=== PATIENT | female | born 1955 | race Caucasian/White ===

== ENCOUNTER 2016-12-09 10:28 | Emergency (ER) | payer BC, OTHER ==
[2016-12-09 10:42] VITALS: BP 119/68
[2016-12-09] MEDS ORDERED: DOXYcycline CAP(*) 100 MG PO ONE (11:47)
--- NOTE | 2016-12-09 11:56 | UC ---
Skin Complaint HPI - HPI Summary HPI Summary: Patient presents s/p tick bite on her left lower leg. She states it must have been on her from 9 p.m last night to 6 a.m. this morning. She removed it, and it was not engorged. She has it with her. She denies any rashes, joint pain, or fever. She notes a small red spot where the tick was. - History of Current Complaint Chief Complaint: UCSkin Time Seen by Provider: 12/09/16 11:43 Stated Complaint: TICK BITE Hx Obtained From: Patient ?: No Onset/Duration: Sudden Onset Skin Exposure Onset/Duration: Hours Ago Current Severity: None Alleviating Factor(s): Nothing Associated Signs & Symptoms: Positive: Negative - Allergy/Home Medications Allergies/Adverse Reactions: Allergies Allergy/AdvReac Type Severity Reaction Status Date / Time Sulfamethoxazole Allergy Mild Rash Verified 12/09/16 10:38 w/Trimethoprim [From Bactrim] Review of Systems Constitutional: Negative Skin: Other - small red augustine on left leg. Eyes: Negative ENT: Negative Respiratory: Negative Cardiovascular: Negative Gastrointestinal: Negative Genitourinary: Negative Motor: Negative Neurovascular: Negative Musculoskeletal: Negative Neurological: Negative Psychological: Negative All Other Systems Reviewed And Are Negative: Yes PMH/Surg Hx/FS Hx/Imm Hx Previously Healthy: Yes - Surgical History Surgical History: Yes Surgery Procedure, Year, and Place: [facility] 1996 - Family History Known Family History: Positive: Other - bone cancer - Social History Occupation: Employed Part-time Lives: With Family Alcohol Use: None Substance Use Type: None Smoking Status (MU): Never Smoked Tobacco Physical Exam Triage Information Reviewed: Yes Appearance: Well-Appearing Vital Signs: Initial Vital Signs Temp 98 F 12/09/16 10:39 Pulse 76 12/09/16 10:39 Resp 18 12/09/16 10:39 BP 119/68 12/09/16 10:39 Pulse Ox 99 12/09/16 10:39 Vital Signs Reviewed: Yes Eye Exam: Normal ENT Exam: Normal Neck exam: Normal Neck: Positive: 1 Respiratory Exam: Normal Cardiovascular Exam: Normal Abdominal Exam: Normal Musculoskeletal Exam: Normal Neurological Exam: Normal Psychological Exam: Normal Skin Exam: Normal Skin: Positive: Other - left medial proximal leg with 1.5 cm circular area, no erythm migrans noted, induration or flucuance. Course/Dx - Course Course Of Treatment: Patient presents s/p tick bite on less than 24 hours not engorged. Treated with doxycycline 200 mg once. Discharged home in stable condition. - Differential Diagnoses - Skin Complaint Differential Diagnoses: Other - tick bite - Diagnoses Provider Diagnoses: tick bite Discharge - Discharge Plan Condition: Stable Disposition: HOME Patient Education Materials: Tick Bite (ED) Referrals: Ilda Walton MD [Primary Care Provider] -
== END 2016-12-09 11:54 | disposition home or self-care (01) ==
LOC: UCEAST 10:28
DX: S80.862A Insect bite (nonvenomous), left lower leg, initial encounter (principal); Z88.2 Allergy status to sulfonamides; W57.XXXA Bitten or stung by nonvenomous insect and other nonvenomous arthropods, initial encounter; Y92.9 Unspecified place or not applicable
CPT/HCPCS: 99212; A9270-GY; G0463

== ENCOUNTER 2017-08-13 21:01 | Observation (INO) | payer BC ==
[2017-08-13 22:04] LABS: ABS Basophils 0 10^3/ul (0-0.2); ABS Eosinophils 0.4 10^3/ul (0-0.6); ABS Lymphocytes 0.5 10^3/ul (1.0-4.8); ABS Monocytes 0.4 10^3/ul (0-0.8); ABS Neutrophils 7.9 10^3/ul (1.5-7.7); ABS Nucleated RBC 0 10^3/ul; Hematocrit 42 % (35-47); Hemoglobin 14.3 g/dl (12.0-16.0); Lymphocyte % 5.3 % (25-47); Mean Corpuscular HGB Conc 34 g/dl (31-36); Mean Corpuscular Hemoglobin 29 pg (27-31); Mean Corpuscular Volume 85 fL (80-97); Mean Platelet Volume 7.2 um3 (7.4-10.4); Nucleated Red Blood Cells % 0.1; Platelet Count 203 10^3/ul (150-450); Red Blood Count 4.96 10^6/ul (4.00-5.40); Red Cell Distribution Width 14 % (10.5-15); White Blood Count 9.2 10^3/ul (3.5-10.8)
[2017-08-13 22:10] LABS: INR 0.99 (0.77-1.02)
[2017-08-13 22:23] LABS: EGFR Non-African American 60.3 (>60)
[2017-08-13] MEDS ORDERED: diPHENhydraMINE IV* 50 MG/ML 1 ml VIAL (BENADRYL) IV ONE (23:25)
[2017-08-13] MEDS ORDERED: NS 0.9% 1000 ML* 1,000 ML IV ONE (23:25)
[2017-08-13] MEDS ORDERED: Metoprolol Tartrate IV* 1 MG/ML 5 ML VIAL IV ONE (23:25)
[2017-08-14] LABS: Urine Appearance Cloudy; Urine Blood 3+ (Negative); Urine Color Yellow; Urine Ketones Negative (Negative); Urine Protein 2+(100 mg/dL) (Negative); Urine Red Blood Cell 2+(6-10/hpf) (Absent); Urine Specific Gravity 1.025 (1.010-1.030); Urine Urobilinogen Negative (Negative); Urine White Blood Cell 2+(11-20/hpf) (Absent)
[2017-08-14] MEDS ORDERED: Levofloxacin 750 MG IVPREMIX(* 750 MG/150 ML BAG IVPB ONE (00:14)
--- NOTE | 2017-08-14 03:04 | HP ---
H&P (Free Text) History and Physical: PCP: Roxanne Walton MD Date/Time: 08/14/2017 0250 CC: generalized weakness, syncope x2 HPI: Mrs Chao is a 62YO female HX hypothyroidism & HLD presenting with onset Friday AM ~0600 upon being awakened by her dog & cat of an "awareness of her breathing and heartbeat" which she could not further characterize. She does not consider it chest pain or SOB. She then got up to let her animals out and awoke on the floor which happened again a few minutes she got up and again awoke on the floor. She does feel like she was out long either time and does not believe she struck her head. She denies any other pre- or post-dromal symptoms. Later in the day she felt tremulous with generalized weakness, subjective F/C, rigors , & "teeth chattering", but no sweats, abdominal pain, headache, change in bowel /bladder, or other issues. Her appetite was poor the remainder of the day. She admits to a non-productive cough and notes that her lower chest/epigastrum feels strange with inspiration, again does not call this pain or SOB. There has been some light nausea, but no emesis or diarrhea. She expressed concern over the fact that her systolic BP on Friday was 160 and in the 90s when she checked it Friday. 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; full code status FamHx: Mother: passed at 46 2nd cancer; Father: passed at 53 of CAD; Sister 1: survived Hodgkin's lymphoma; Sister 2: HX hepatitis A ROS: as above, otherwise reviewed and all were negative vitals: Vital Signs Temp 37.4 C 06/27/18 21:08 Pulse 95 08/14/17 01:00 Resp 25 08/14/17 01:00 BP 117/76 08/14/17 00:45 Pulse Ox 96 08/14/17 01:00 Constitutional: NAD, normally developed, overweight white female HEENM: atraumatic; sclera/conjunctiva: anicteric/clear; hearing: clinically intact; oropharynx: clear, mucosa moist Neck: soft tissue: no nuchal rigidity; thyroid: normal Pulmonary: clear to auscultation bilaterally, good aeration, no accessory muscle use CV: RR/RR, normal S1S2, no carotid bruit, no jugular venous distention, 2+ B DP/ PT, no edema Abdominal: soft, non-distended, non-tender, no rebound/guarding/rigidity, normoactive bowel sounds, no hepatosplenomegaly or masses, no costovertebral angle tenderness Musculoskeletal: general: grossly intact, non-tender Integumental: normal appearance and texture of exposed skin Psychiatric orientation: AA&O to PPS affect: calm mood: cooperative eye contact: good content: reliable responses: timely insight: fair to poor Testing: Lab Results 08/13/17 08/13/17 08/13/17 Range/Units 21:56 21:56 21:56 WBC 9.2 (3.5-10.8) 10^3/ul RBC 4.96 (4.00-5.40) 10^6/ul Hgb 14.3 (12.0-16.0) g/dl Hct 42 (35-47) % MCV 85 (80-97) fL MCH 29 (27-31) pg MCHC 34 (31-36) g/dl RDW 14 (10.5-15) % Plt Count 203 (150-450) 10^3/ul MPV 7.2 L (7.4-10.4) um3 Neut % (Auto) 86.1 H (38-83) % Lymph % (Auto) 5.3 L (25-47) % [place] % (Auto) 4.4 (0-7) % Eos % (Auto) 4.0 (0-6) % Baso % (Auto) 0.2 (0-2) % Absolute Neuts (auto) 7.9 H (1.5-7.7) 10^3/ul Absolute Lymphs (auto) 0.5 L (1.0-4.8) 10^3/ul Absolute Monos (auto) 0.4 (0-0.8) 10^3/ul Absolute Eos (auto) 0.4 (0-0.6) 10^3/ul Absolute Basos (auto) 0 (0-0.2) 10^3/ul Absolute Nucleated RBC 0 10^3/ul Nucleated RBC % 0.1 INR (Anticoag Therapy) 0.99 (0.77-1.02) Sodium 139 (135-145) mmol/L Potassium 3.5 (3.5-5.0) mmol/L Chloride 105 (101-111) mmol/L Carbon Dioxide 23 (22-32) mmol/L Anion Gap 11 (2-11) mmol/L BUN 29 H (6-24) mg/dL Creatinine 0.94 (0.51-0.95) mg/dL Est GFR ( Amer) 73.0 (>60) Est GFR (Non-Af Amer) 60.3 (>60) BUN/Creatinine Ratio 30.9 H (8-20) Glucose 106 H (70-100) mg/dL Lactic Acid (0.5-2.0) mmol/L Calcium 9.5 (8.6-10.3) mg/dL Magnesium (1.9-2.7) mg/dL Total Bilirubin 0.40 (0.2-1.0) mg/dL AST 19 (13-39) U/L ALT 18 (7-52) U/L Alkaline Phosphatase 60 (34-104) U/L Troponin I 0.01 (<0.04) ng/mL B-Natriuretic Peptide ( - 100) pg/mL Total Protein 7.0 (6.4-8.9) g/dL Albumin 4.1 (3.2-5.2) g/dL Globulin 2.9 (2-4) g/dL Albumin/Globulin Ratio 1.4 (1-3) TSH 0.80 (0.34-5.60) mcIU/mL Urine Color Urine Appearance Urine pH (5-9) Ur Specific [place] (1.010-1.030) Urine Protein (Negative) Urine Ketones (Negative) Urine Blood (Negative) Urine Nitrate (Negative) Urine Bilirubin (Negative) Urine Urobilinogen (Negative) Ur Leukocyte Esterase (Negative) Urine WBC (Auto) (Absent) Urine RBC (Auto) (Absent) Ur Squamous Epith Cells (Absent) Urine Bacteria (Absent) Urine Glucose (Negative) 08/13/17 08/13/17 08/13/17 Range/Units 21:56 21:56 23:43 WBC (3.5-10.8) 10^3/ul RBC (4.00-5.40) 10^6/ul Hgb (12.0-16.0) g/dl Hct (35-47) % MCV (80-97) fL MCH (27-31) pg MCHC (31-36) g/dl RDW (10.5-15) % Plt Count (150-450) 10^3/ul MPV (7.4-10.4) um3 Neut % (Auto) (38-83) % Lymph % (Auto) (25-47) % [place] % (Auto) (0-7) % Eos % (Auto) (0-6) % Baso % (Auto) (0-2) % Absolute Neuts (auto) (1.5-7.7) 10^3/ul Absolute Lymphs (auto) (1.0-4.8) 10^3/ul Absolute Monos (auto) (0-0.8) 10^3/ul Absolute Eos (auto) (0-0.6) 10^3/ul Absolute Basos (auto) (0-0.2) 10^3/ul Absolute Nucleated RBC 10^3/ul Nucleated RBC % INR (Anticoag Therapy) (0.77-1.02) Sodium (135-145) mmol/L Potassium (3.5-5.0) mmol/L Chloride (101-111) mmol/L Carbon Dioxide (22-32) mmol/L Anion Gap (2-11) mmol/L BUN (6-24) mg/dL Creatinine (0.51-0.95) mg/dL Est GFR ( Amer) (>60) Est GFR (Non-Af Amer) (>60) BUN/Creatinine Ratio (8-20) Glucose (70-100) mg/dL Lactic Acid 1.2 (0.5-2.0) mmol/L Calcium (8.6-10.3) mg/dL Magnesium (1.9-2.7) mg/dL Total Bilirubin (0.2-1.0) mg/dL AST (13-39) U/L ALT (7-52) U/L Alkaline Phosphatase (34-104) U/L Troponin I (<0.04) ng/mL B-Natriuretic Peptide 26 ( - 100) pg/mL Total Protein (6.4-8.9) g/dL Albumin (3.2-5.2) g/dL Globulin (2-4) g/dL Albumin/Globulin Ratio (1-3) TSH (0.34-5.60) mcIU/mL Urine Color Yellow Urine Appearance Cloudy Urine pH 5.0 (5-9) Ur Specific [place] 1.025 (1.010-1.030) Urine Protein 2+(100 mg/dl) A (Negative) Urine Ketones Negative (Negative) Urine Blood 3+ A (Negative) Urine Nitrate Negative (Negative) Urine Bilirubin Negative (Negative) Urine Urobilinogen Negative (Negative) Ur Leukocyte Esterase 2+ A (Negative) Urine WBC (Auto) 2+(11-20/hpf) A (Absent) Urine RBC (Auto) 2+(6-10/hpf) A (Absent) Ur Squamous Epith Cells Present A (Absent) Urine Bacteria Absent (Absent) Urine Glucose Negative (Negative) 08/14/17 Range/Units 00:31 WBC (3.5-10.8) 10^3/ul RBC (4.00-5.40) 10^6/ul Hgb (12.0-16.0) g/dl Hct (35-47) % MCV (80-97) fL MCH (27-31) pg MCHC (31-36) g/dl RDW (10.5-15) % Plt Count (150-450) 10^3/ul MPV (7.4-10.4) um3 Neut % (Auto) (38-83) % Lymph % (Auto) (25-47) % [place] % (Auto) (0-7) % Eos % (Auto) (0-6) % Baso % (Auto) (0-2) % Absolute Neuts (auto) (1.5-7.7) 10^3/ul Absolute Lymphs (auto) (1.0-4.8) 10^3/ul Absolute Monos (auto) (0-0.8) 10^3/ul Absolute Eos (auto) (0-0.6) 10^3/ul Absolute Basos (auto) (0-0.2) 10^3/ul Absolute Nucleated RBC 10^3/ul Nucleated RBC % INR (Anticoag Therapy) (0.77-1.02) Sodium (135-145) mmol/L Potassium (3.5-5.0) mmol/L Chloride (101-111) mmol/L Carbon Dioxide (22-32) mmol/L Anion Gap (2-11) mmol/L BUN (6-24) mg/dL Creatinine (0.51-0.95) mg/dL Est GFR ( Amer) (>60) Est GFR (Non-Af Amer) (>60) BUN/Creatinine Ratio (8-20) Glucose (70-100) mg/dL Lactic Acid (0.5-2.0) mmol/L Calcium (8.6-10.3) mg/dL Magnesium 2.1 (1.9-2.7) mg/dL Total Bilirubin (0.2-1.0) mg/dL AST (13-39) U/L ALT (7-52) U/L Alkaline Phosphatase (34-104) U/L Troponin I 0.00 (<0.04) ng/mL B-Natriuretic Peptide ( - 100) pg/mL Total Protein (6.4-8.9) g/dL Albumin (3.2-5.2) g/dL Globulin (2-4) g/dL Albumin/Globulin Ratio (1-3) TSH (0.34-5.60) mcIU/mL Urine Color Urine Appearance Urine pH (5-9) Ur Specific [place] (1.010-1.030) Urine Protein (Negative) Urine Ketones (Negative) Urine Blood (Negative) Urine Nitrate (Negative) Urine Bilirubin (Negative) Urine Urobilinogen (Negative) Ur Leukocyte Esterase (Negative) Urine WBC (Auto) (Absent) Urine RBC (Auto) (Absent) Ur Squamous Epith Cells (Absent) Urine Bacteria (Absent) Urine Glucose (Negative) ECG, personally reviewed: tachycardic ventricular quad-geminal RBBB rate 106, inverted T-waves III/AVF; Q-waves II/III/AVF; no prior comparison x/ ECG done earlier same day @ urgent care which is unchanged CXR, personally reviewed: no acute process Impression: 62F HX hypothyroidism & HLD presents with generalized subjective fevers/rigors & syncope DIAGNOSIS & PLAN Primary syncope : telemetry : check ECHO in AM to evaluate for valvular disorders : check d-dimer : supportive care subjective fevers : no source : check blood & urine CXs : given levofloxacin in ED, will hold further ABX at this time : trend WBCs & temp curves Secondary hypothyroidism : continue levothyroxine HLD : continue lovastatin Admission Rational: observation for syncope DVTp: heparin SQ Code Status: full HCP:
--- NOTE | 2017-08-14 04:00 | ED ---
Destini Carreon Jade, scribed for Sanju Koehler MD on 08/13/17 at 2329 . HPI Cardiac - HPI Summary HPI Summary: Pt is a 62 y/o female who presents to the ED c/o palpitations. She states a few days ago she felt like she was hyperventilating and could feel a pulse in her left ear. Yesterday, she had 2 syncopal episodes, and doesnt remember passing out. Pt denies any injuries during her fall. She thought the passing out was due to dehydration. Pt states she has been under lots of stress lately and has not been taking care of herself properly. Pt states she feels tired, has an intermittent cough with deep breaths, has a hive-like rash on her legs, and had a temperature of 101.6 degrees F. She denies any sore throat, runny nose, SOB, dysuria, urinary frequency, or abdominal pain. She just finished antibiotic treatment for a UTI today. Pt states her flushed cheeks are normal due to Rosacea. - History of Current Complaint Chief Complaint: EDDysrhythmPalp Stated Complaint: FEVER/ABNORMAL EKG SENT FROM CC Time Seen by Provider: 08/13/17 22:47 Hx Obtained From: Patient Hx Last Menstrual Period: post Onset/Duration: Started Days Ago - 2-3, Still Present Timing: Constant Current Severity: Mild Pain Intensity: 2 Pain Scale Used: 0-10 Numeric Character: Irregular Aggravating Factor(s): Nothing Alleviating Factor(s): Nothing Associated Signs and Symptoms: Positive: Recent Stress, Syncope, Cough - With deep breaths. Negative: Abdominal Pain, Sinus Discomfrot - Allergy/Home Medications Allergies/Adverse Reactions: Allergies Allergy/AdvReac Type Severity Reaction Status Date / Time sulfamethoxazole Allergy Intermediate lip rash Verified 08/13/17 21:12 [From Bactrim] trimethoprim [From Bactrim] Allergy Intermediate lip rash Verified 08/13/17 21: 12 Home Medications: Home Medications Aspirin 81 mg CHEW TAB* [Aspirin Low Dose TAB*] 81 mg PO DAILY 08/13/17 [ History Confirmed 08/13/17] Levothyroxine TAB* [Synthroid TAB*] 100 mcg PO DAILY 08/13/17 [History Confirmed 08/13/17] Lovastatin [Altoprev] 20 mg PO DAILY 08/13/17 [History Confirmed 08/13/17] PMH/Surg Hx/FS Hx/Imm Hx Endocrine/Hematology History: Reports: Hx Thyroid Disease Cardiovascular History: Reports: Hx Hypertension - no meds History: Reports: Other Problems/Disorders - UTI Musculoskeletal History: Reports: Other Musculoskeletal History - osteopenia Denies: Hx Osteoporosis - Cancer History Hx Chemotherapy: No Hx Radiation Therapy: No - Surgical History Surgery Procedure, Year, and Place: 1996 Infectious Disease History: No Infectious Disease History: Denies: Hx Clostridium Difficile, Hx Hepatitis, Hx Human Immunodeficiency Virus (HIV), Hx of Known/Suspected MRSA, Hx Shingles, Hx Tuberculosis, Hx Known/ Suspected VRE, Hx Known/Suspected VRSA, History Other Infectious Disease, Traveled Outside the [place] in Last 30 Days - Family History Known Family History: Positive: Other - bone cancer - Social History Alcohol Use: None Substance Use Type: Reports: None Smoking Status (MU): Never Smoked Tobacco Review of Systems Positive: Fever, Fatigue Negative: Sore Throat, Nasal Discharge Positive: Other - Hyperventilation Positive: Cough - With deep breaths. Negative: Shortness Of Breath Negative: Abdominal Pain Negative: dysuria, frequency Positive: Rash Positive: Syncope Positive: Other - Stressed All Other Systems Reviewed And Are Negative: Yes Physical Exam - Summary Physical Exam Summary: Appearance: Well appearing, no pain distress Skin: warm, dry, reflects adequate perfusion. Erythematous splotches on both thighs and back. Head/face: normal Eyes: EOMI, BLAIR ENT: normal Neck: supple, non-tender Respiratory: CTA, breath sounds present Cardiovascular: pulses symmetrical, irregularly irregular rhythm. Tachycardic. Abdomen: non-tender, soft Bowel Sounds: present Musculoskeletal: normal, strength/ROM intact Neuro: normal, sensory motor intact, A&Ox3 Triage Information Reviewed: Yes Vital Signs On Initial Exam: Initial Vitals Temp Pulse Resp BP Pulse Ox 99.3 F 106 16 131/64 94 08/13/17 21:08 08/13/17 21:08 08/13/17 21:08 08/13/17 21:08 08/13/17 21:08 Vital Signs Reviewed: Yes Diagnostics - Vital Signs Vital Signs Temp Pulse Resp BP Pulse Ox 08/13/17 23:16 105 16 133/64 94 08/13/17 23:00 82 27 94 08/13/17 22:47 67 16 96 08/13/17 22:46 105 135/89 97 08/13/17 21:08 99.3 F 106 16 131/64 94 - Laboratory Lab Results: Lab Results 08/13/17 08/13/17 08/13/17 Range/Units 21:56 21:56 21:56 WBC 9.2 (3.5-10.8) 10^3/ul RBC 4.96 (4.00-5.40) 10^6/ul Hgb 14.3 (12.0-16.0) g/dl Hct 42 (35-47) % MCV 85 (80-97) fL MCH 29 (27-31) pg MCHC 34 (31-36) g/dl RDW 14 (10.5-15) % Plt Count 203 (150-450) 10^3/ul MPV 7.2 L (7.4-10.4) um3 Neut % (Auto) 86.1 H (38-83) % Lymph % (Auto) 5.3 L (25-47) % [place] % (Auto) 4.4 (0-7) % Eos % (Auto) 4.0 (0-6) % Baso % (Auto) 0.2 (0-2) % Absolute Neuts (auto) 7.9 H (1.5-7.7) 10^3/ul Absolute Lymphs (auto) 0.5 L (1.0-4.8) 10^3/ul Absolute Monos (auto) 0.4 (0-0.8) 10^3/ul Absolute Eos (auto) 0.4 (0-0.6) 10^3/ul Absolute Basos (auto) 0 (0-0.2) 10^3/ul Absolute Nucleated RBC 0 10^3/ul Nucleated RBC % 0.1 INR (Anticoag Therapy) 0.99 (0.77-1.02) Sodium 139 (135-145) mmol/L Potassium 3.5 (3.5-5.0) mmol/L Chloride 105 (101-111) mmol/L Carbon Dioxide 23 (22-32) mmol/L Anion Gap 11 (2-11) mmol/L BUN 29 H (6-24) mg/dL Creatinine 0.94 (0.51-0.95) mg/dL Est GFR ( Amer) 73.0 (>60) Est GFR (Non-Af Amer) 60.3 (>60) BUN/Creatinine Ratio 30.9 H (8-20) Glucose 106 H (70-100) mg/dL Lactic Acid (0.5-2.0) mmol/L Calcium 9.5 (8.6-10.3) mg/dL Total Bilirubin 0.40 (0.2-1.0) mg/dL AST 19 (13-39) U/L ALT 18 (7-52) U/L Alkaline Phosphatase 60 (34-104) U/L Troponin I 0.01 (<0.04) ng/mL Total Protein 7.0 (6.4-8.9) g/dL Albumin 4.1 (3.2-5.2) g/dL Globulin 2.9 (2-4) g/dL Albumin/Globulin Ratio 1.4 (1-3) TSH 0.80 (0.34-5.60) mcIU/mL 08/13/17 Range/Units 21:56 WBC (3.5-10.8) 10^3/ul RBC (4.00-5.40) 10^6/ul Hgb (12.0-16.0) g/dl Hct (35-47) % MCV (80-97) fL MCH (27-31) pg MCHC (31-36) g/dl RDW (10.5-15) % Plt Count (150-450) 10^3/ul MPV (7.4-10.4) um3 Neut % (Auto) (38-83) % Lymph % (Auto) (25-47) % [place] % (Auto) (0-7) % Eos % (Auto) (0-6) % Baso % (Auto) (0-2) % Absolute Neuts (auto) (1.5-7.7) 10^3/ul Absolute Lymphs (auto) (1.0-4.8) 10^3/ul Absolute Monos (auto) (0-0.8) 10^3/ul Absolute Eos (auto) (0-0.6) 10^3/ul Absolute Basos (auto) (0-0.2) 10^3/ul Absolute Nucleated RBC 10^3/ul Nucleated RBC % INR (Anticoag Therapy) (0.77-1.02) Sodium (135-145) mmol/L Potassium (3.5-5.0) mmol/L Chloride (101-111) mmol/L Carbon Dioxide (22-32) mmol/L Anion Gap (2-11) mmol/L BUN (6-24) mg/dL Creatinine (0.51-0.95) mg/dL Est GFR ( Amer) (>60) Est GFR (Non-Af Amer) (>60) BUN/Creatinine Ratio (8-20) Glucose (70-100) mg/dL Lactic Acid 1.2 (0.5-2.0) mmol/L Calcium (8.6-10.3) mg/dL Total Bilirubin (0.2-1.0) mg/dL AST (13-39) U/L ALT (7-52) U/L Alkaline Phosphatase (34-104) U/L Troponin I (<0.04) ng/mL Total Protein (6.4-8.9) g/dL Albumin (3.2-5.2) g/dL Globulin (2-4) g/dL Albumin/Globulin Ratio (1-3) TSH (0.34-5.60) mcIU/mL Result Diagrams: 08/13/17 21:56 08/13/17 21:56 Lab Statement: Any lab studies that have been ordered have been reviewed, and results considered in the medical decision making process. - Radiology CXR Xray Interpretation: Positive (See Comments) - Increased interstitial markings and possible right middle lobe infiltrate. Pending official radiology report. Radiology Interpretation Completed By: ED Physician - EKG 21:40 Cardiac Rate: Tachycardia - [address] Segment: Non-Specific Ectopy: PVCs - Multiple EKG Interpretation: RBBB, LAD Disposition - Course Course Of Treatment: Patient with weakness, syncope 2 yesterday and malaise. X -ray shows right basilar infiltrate. WBC slightly elevated. Recently off antibiotic for UTI. Patient is unsure which one. IV fluids, antibiotics started here. Hospitalist contacted and evaluated the patient at bedside and will admit. - Differential Dx - Cardiopulmonary Differential Diagnoses - Cardiopulmonary: Acute Coronary, Bronchitis, CAD, Cardiomyopathy, CHF, Lower Resp Infection, Pulmonary Edema - Diagnoses Provider Diagnoses: Syncope, PVCs (premature ventricular contractions), Right lower lobe pneumonia - Physician Notifications Discussed Care Of Patient With: Cm Arriaza Time Discussed With Above Provider: 12:49 Instructed by Provider To: Other - Dr. Arriaza accepts pt for admission. Discharge - Sign-Out/Discharge Documenting (check all that apply): Discharge/Admit/Transfer - Admit - Discharge Plan Condition: Fair Disposition: ADMITTED TO [facility] - Billing Disposition and Condition Condition: FAIR Disposition: Admitted to [facility] The documentation as recorded by the Destini canela Jade accurately reflects the service I personally performed and the decisions made by , Sanju Koehler MD.
--- NOTE | 2017-08-14 07:52 | RAD ---
INDICATION: Palpitations COMPARISON: None TECHNIQUE: An AP portable view obtained at 2209 hours is submitted. FINDINGS: Bones/Soft Tissues: There are no acute bony findings. Cardiomediastinal: The cardiomediastinal silhouette is normal. Lungs: There is mild linear change left lung base most consistent with minimal atelectasis or scarring. There is mild diffuse interstitial change with may be chronic. There is no focal consolidation. Pleura: There are no pleural effusions. Other: None IMPRESSION: SUSPECTED MILD CHRONIC INTERSTITIAL CHANGES MINIMAL LEFT BASILAR ATELECTASIS OR SCARRING.
[2017-08-14] MEDS ORDERED: Acetaminophen TAB* 325 MG PO PRN (07:55)
[2017-08-14] MEDS ORDERED: Melatonin 3 MG TAB PO PRN (07:55)
[2017-08-14] MEDS: Levothyroxine TAB* 100 MCG TAB PO SCH (08:36)
[2017-08-14] MEDS: Aspirin 81 mg CHEW TAB* 81 MG TAB.CHEW PO SCH (08:36)
[2017-08-14] MEDS: Docusate CAP* 100 MG PO SCH ×2 (08:36→21:31)
[2017-08-14] MEDS ORDERED: CMC:Lovastatin (NF) 10 MG TAB PO SCH ×2 (09:00→17:00)
[2017-08-14 09:26] LABS: ABS Basophils 0.2 10^3/ul (0-0.2); ABS Eosinophils 0.3 10^3/ul (0-0.6); ABS Lymphocytes 0.6 10^3/ul (1.0-4.8); ABS Monocytes 0.3 10^3/ul (0-0.8); ABS Neutrophils 5.4 10^3/ul (1.5-7.7); ABS Nucleated RBC 0 10^3/ul; Hematocrit 39 % (35-47); Hemoglobin 13.5 g/dl (12.0-16.0); Lymphocyte % 8.3 % (25-47); Mean Corpuscular HGB Conc 35 g/dl (31-36); Mean Corpuscular Hemoglobin 29 pg (27-31); Mean Corpuscular Volume 84 fL (80-97); Mean Platelet Volume 6.9 um3 (7.4-10.4); Nucleated Red Blood Cells % 0; Platelet Count 198 10^3/ul (150-450); Red Blood Count 4.61 10^6/ul (4.00-5.40); Red Cell Distribution Width 14 % (10.5-15); White Blood Count 6.8 10^3/ul (3.5-10.8)
[2017-08-14 09:43] LABS: EGFR Non-African American 67.8 (>60)
[2017-08-14 09:51] LABS: INR 1.12 (0.77-1.02)
--- NOTE | 2017-08-14 11:25 | PN ---
Subjective Date of Service: 08/14/17 Interval History: No complaints. Denies CP, SOB, pleuritis, N/V, LH, vision changes, paresthesias Additional history: Friday felt fatigued and a sensation like shortness of breath. Friday had brief (seconds to minutes) numbness in entire right leg. 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 Friday completed 7 abx for UTI. Symptoms have now resolved. Diagnosed with urinary urgency. Friday presented to ED because she still felt unwell. Reports episode of teeth chattering and shaking which also occurred Friday In ED noted new rash on left leg and also identified on back. She has had right upper dental pain since March which has not been evaluated. Objective Active Medications: Acetaminophen (Tylenol Tab*) 650 mg PO Q6H PRN PRN Reason: FEVER/PAIN Aspirin (Aspirin 81 Mg Chew Tab*) 81 mg PO DAILY [facility] Last Admin: 08/14/17 08:36 Dose: 81 mg Docusate Sodium (Colace Cap*) 200 mg PO BID [facility] Last Admin: 08/14/17 08:36 Dose: 200 mg Heparin Sodium (Porcine) (Heparin Vial(*)) 5,000 units SUBCUT Q8HR [facility] Sodium Chloride (Ns 0.9% 1000 Ml*) 1,000 mls @ 100 mls/hr IV PER RATE [facility] Levothyroxine Sodium (Synthroid Tab*) 100 mcg PO DAILY [facility] Last Admin: 08/14/17 08:36 Dose: 100 mcg Lovastatin (Mevacor (Nf)) 20 mg PO DAILY@1700 [facility] Melatonin (Melatonin) 3 mg PO BEDTIME PRN; Protocol PRN Reason: Sleep Omeprazole (Prilosec Cap*) 20 mg PO DAILY@0600 [facility] Vital Signs - 8 hr 08/14/17 08/14/17 08/14/17 03:54 03:55 04:33 Temperature 98.1 F 98.5 F Pulse Rate 96 81 Respiratory 20 16 16 Rate Blood Pressure 117/76 128/68 (mmHg) O2 Sat by Pulse 97 98 Oximetry 08/14/17 08/14/17 07:39 08:00 Temperature 98.7 F Pulse Rate 89 Respiratory 16 16 Rate Blood Pressure 133/65 (mmHg) O2 Sat by Pulse 97 Oximetry Oxygen Devices in Use Now: None Appearance: NAD Eyes: No Scleral Icterus, PERRLA Ears/Nose/Mouth/Throat: NL Teeth, Lips, Gums, Mucous Membranes Moist, - - no obvious dental deformities or infection Neck: NL Appearance and Movements; NL JVP, Trachea Midline Respiratory: Symmetrical Chest Expansion and Respiratory Effort, Clear to Auscultation Cardiovascular: NL Sounds; No Murmurs; No JVD, RRR, No Edema Abdominal: NL Sounds; No Tenderness; No Distention, No Hepatosplenomegaly Lymphatic: No Cervical Adenopathy, No Axillary Adenopathy Extremities: No Edema Skin: - - left leg and upper back with scattered macular/papular ovoid lesions Neurological: Alert and Oriented x 3, NL Muscle Strength and Tone Result Diagrams: 08/14/17 09:15 08/14/17 09:15 Additional Lab and Data: Lab Results 08/13/17 08/13/17 08/13/17 Range/Units 21:56 21:56 21:56 WBC 9.2 (3.5-10.8) 10^3/ul RBC 4.96 (4.00-5.40) 10^6/ul Hgb 14.3 (12.0-16.0) g/dl Hct 42 (35-47) % MCV 85 (80-97) fL MCH 29 (27-31) pg MCHC 34 (31-36) g/dl RDW 14 (10.5-15) % Plt Count 203 (150-450) 10^3/ul MPV 7.2 L (7.4-10.4) um3 Neut % (Auto) 86.1 H (38-83) % Lymph % (Auto) 5.3 L (25-47) % [place] % (Auto) 4.4 (0-7) % Eos % (Auto) 4.0 (0-6) % Baso % (Auto) 0.2 (0-2) % Absolute Neuts (auto) 7.9 H (1.5-7.7) 10^3/ul Absolute Lymphs (auto) 0.5 L (1.0-4.8) 10^3/ul Absolute Monos (auto) 0.4 (0-0.8) 10^3/ul Absolute Eos (auto) 0.4 (0-0.6) 10^3/ul Absolute Basos (auto) 0 (0-0.2) 10^3/ul Absolute Nucleated RBC 0 10^3/ul Nucleated RBC % 0.1 INR (Anticoag Therapy) 0.99 (0.77-1.02) Sodium 139 (135-145) mmol/L Potassium 3.5 (3.5-5.0) mmol/L Chloride 105 (101-111) mmol/L Carbon Dioxide 23 (22-32) mmol/L Anion Gap 11 (2-11) mmol/L BUN 29 H (6-24) mg/dL Creatinine 0.94 (0.51-0.95) mg/dL Est GFR ( Amer) 73.0 (>60) Est GFR (Non-Af Amer) 60.3 (>60) BUN/Creatinine Ratio 30.9 H (8-20) Glucose 106 H (70-100) mg/dL Lactic Acid (0.5-2.0) mmol/L Calcium 9.5 (8.6-10.3) mg/dL Total Bilirubin 0.40 (0.2-1.0) mg/dL AST 19 (13-39) U/L ALT 18 (7-52) U/L Alkaline Phosphatase 60 (34-104) U/L Troponin I 0.01 (<0.04) ng/mL Total Protein 7.0 (6.4-8.9) g/dL Albumin 4.1 (3.2-5.2) g/dL Globulin 2.9 (2-4) g/dL Albumin/Globulin Ratio 1.4 (1-3) TSH 0.80 (0.34-5.60) mcIU/mL 08/13/17 Range/Units 21:56 WBC (3.5-10.8) 10^3/ul RBC (4.00-5.40) 10^6/ul Hgb (12.0-16.0) g/dl Hct (35-47) % MCV (80-97) fL MCH (27-31) pg MCHC (31-36) g/dl RDW (10.5-15) % Plt Count (150-450) 10^3/ul MPV (7.4-10.4) um3 Neut % (Auto) (38-83) % Lymph % (Auto) (25-47) % [place] % (Auto) (0-7) % Eos % (Auto) (0-6) % Baso % (Auto) (0-2) % Absolute Neuts (auto) (1.5-7.7) 10^3/ul Absolute Lymphs (auto) (1.0-4.8) 10^3/ul Absolute Monos (auto) (0-0.8) 10^3/ul Absolute Eos (auto) (0-0.6) 10^3/ul Absolute Basos (auto) (0-0.2) 10^3/ul Absolute Nucleated RBC 10^3/ul Nucleated RBC % INR (Anticoag Therapy) (0.77-1.02) Sodium (135-145) mmol/L Potassium (3.5-5.0) mmol/L Chloride (101-111) mmol/L Carbon Dioxide (22-32) mmol/L Anion Gap (2-11) mmol/L BUN (6-24) mg/dL Creatinine (0.51-0.95) mg/dL Est GFR ( Amer) (>60) Est GFR (Non-Af Amer) (>60) BUN/Creatinine Ratio (8-20) Glucose (70-100) mg/dL Lactic Acid 1.2 (0.5-2.0) mmol/L Calcium (8.6-10.3) mg/dL Total Bilirubin (0.2-1.0) mg/dL AST (13-39) U/L ALT (7-52) U/L Alkaline Phosphatase (34-104) U/L Troponin I (<0.04) ng/mL Total Protein (6.4-8.9) g/dL Albumin (3.2-5.2) g/dL Globulin (2-4) g/dL Albumin/Globulin Ratio (1-3) TSH (0.34-5.60) mcIU/mL Assess/Plan/Problems-Billing Assessment: 62 yo F presenting after feeling unwell for 1 day followed by 2 episodes of LOC without preceding symptoms - Patient Problems (1) Syncope Comment: concerning without preceeding symptoms and recurrence (twice) c/w tele CTA without PE consider MRI brain can consider outpatient holter (2) Rash Comment: strange timing with syncope unclear etiology asymptomatic monitor (3) Paresthesia Comment: right leg and brief Pt relays similar symptoms with stress previously that lasted much longer can consider MRI brain as above (4) DVT prophylaxis Comment: HSQ
--- NOTE | 2017-08-14 12:40 | ECHO ---
Patient: CHAYITO GUTIÉRREZ [facility] Rec#: [id number] : 1955 Date: 08/14/2017 Age: 62y Height: 162.6 cm / 64.0 in Weight: 74.4 kg / 164.0 lbs Sex: F BSA: 1.8 Room#: [facility] Admit Date#: 08/14/2017 Type: Inpatient Referring: Cm Arriaza MD Reading: Mike Fischer MD [employer] Operator: Rosaura Mercado RN RDCS CC: Ilda Walton MD Transthoracic Echocardiogram Indication: Syncope BP: 133/65 HR: 83 Rhythm: NSR Findings History: Hyperlipidemia Technical Comments: The study quality is fair. The study is technically limited due to patient body habitus. Completed at 1130. Left Ventricle: The left ventricular chamber size is normal. There is increased basal septal hypertrophy noted without evidence of an increased gradient across the left ventricular outflow tract. Global left ventricular wall motion and contractility are within normal limits. There is normal left ventricular systolic function. The estimated ejection fraction is 60-65%. Abnormal left ventricular diastolic filling is observed, consistent with impaired relaxation. Left Atrium: The left atrial chamber size is normal. Right Ventricle: The right ventricular chamber size and systolic function are within normal limits. Right Atrium: The right atrial cavity size is normal. Aortic Valve: The aortic valve is trileaflet. The aortic valve leaflets are mildly thickened. There is no evidence of aortic regurgitation. There is no evidence of aortic stenosis. Mitral Valve: The mitral valve leaflets are mildly thickened. There is a trace of mitral regurgitation. There is no evidence of mitral stenosis. Tricuspid Valve: The tricuspid valve leaflets are normal. There is trace tricuspid regurgitation. Unable to estimate the right ventricular systolic pressure. There is no tricuspid stenosis. Pulmonic Valve: The pulmonic valve structure is not well visualized. There is mild pulmonic regurgitation. There is no pulmonic stenosis. Pericardium: There is no significant pericardial effusion. A pericardial fat pad is visualized. Aorta: There is no dilatation of the ascending aorta. There is no dilatation of the aortic arch. There is no dilation of the aortic root. Pulmonary Artery: The main pulmonary artery is not well visualized. Venous: The inferior vena cava appears normal in size. There is an approximate 50% respiratory change in the inferior vena cava dimension. Summary: There was not any prior study for comparison. Conclusions There is increased basal septal hypertrophy noted without evidence of an increased gradient across the left ventricular outflow tract. The estimated ejection fraction is 60-65%. There is an E to A reversal in the mitral valve flow pattern suggestive of diastolic dysfunction. The aortic valve leaflets are mildly thickened. There is a trace of mitral regurgitation. There is trace tricuspid regurgitation. There is mild pulmonic regurgitation. Measurements Name Value Normal Range RVDdMajor (2D) 2.6 cm (2.2 - 4.4) RAd ISD 4CH 4.1 cm (3.4 - 4.9) RA (A4C)W 3.5 cm (2.9 - 4.6) IVSd (2D) 1 cm (0.6 - 1) LVPWd (2D) 1.1 cm (0.6 - 1) LVIDd (2D) 4 cm (3.6 - 5.4) LVIDs (2D) 2.6 cm - LV FS (2D) 0.35 % (25 - 45) Aortic Annulus 2.1 cm (1.4 - 2.6) Ao root diameter (2D) 3.1 cm (2.1 - 3.5) Ascending Ao 2.9 cm (2.1 - 3.4) Aortic arch 2.6 cm (1.8 - 3.4) LA dimension (AP) 2D 3.2 cm (2.3 - 3.8) LAd ISD 4CH 4 cm (2.9 - 5.3) LA ISD 4CH W 4 cm (2.5 - 4.5) Name Value Normal Range LA ESV SP 4CH (A/L) 32 ml - LA ESV SP 2CH (A/L) 42 ml - LA ESV BP (A/L) 37 ml - LA ESV BP (A/L) index 20.7 ml/m2 - LA ESV SP 4CH (MOD) 28 ml - LA ESV SP 2CH (MOD) 40 ml - Name Value Normal Range MV E-wave Vmax 0.56 m/sec - MV deceleration time 189 msec - MV A-wave Vmax 0.75 m/sec - MV E:A ratio 0.74 ratio - LV septal e' Vmax 0.09 m/sec - LV lateral e' Vmax 0.1 m/sec - LV E:e' septal ratio 6.2 ratio - LV E:e' lateral ratio 5.6 ratio - Name Value Normal Range AV Vmax 1.4 m/sec - AV VTI 23.6 cm - AV peak gradient 7.8 mmHg - AV mean gradient 4.6 mmHg - LVOT Vmax 1.1 m/sec - LVOT VTI 22.1 cm - LVOT peak gradient 4.9 mmHg - LVOT mean gradient 2.7 mmHg - ISIDRA Vmax 1 m/sec - Name Value Normal Range IVC diameter 1.7 cm - Name Value Normal Range PV Vmax 0.93 m/sec -
[2017-08-14] MEDS: Heparin VIAL(*) 5000 UNITS/ML VIAL (FIVE THOUSAND) SUBCUT SCH ×2 (13:41→21:32)
[2017-08-14] MEDS: NS 0.9% 1000 ML* 1,000 ML IV SCH (14:08)
[2017-08-14] MEDS ORDERED: Iohexol 350* (CONTRAST) 500 ML MDV IV ONE (15:28)
--- NOTE | 2017-08-14 17:44 | RAD ---
Indication: Loss of consciousness. Contrast: Administered 68.3 ml of OMNIPAQUE 350 mg/ml CTA of the chest performed after IV contrast administration. Coronal and sagittal reconstructed images were obtained. The pulmonary arterial tree is well opacified. There are no filling defects present to suggest pulmonary embolus. Small 3 to 5 mm pretracheal lymph nodes are noted. Prevascular space lymph nodes are noted measuring up to 8 mm. Left hilar lymph nodes measuring up to 10 mm is noted and right hilar lymph nodes measuring up to 9 mm are noted. The heart demonstrates no pericardial effusion. Emphysematous changes are noted. Bibasilar atelectasis is noted. The aorta demonstrates no evidence of aneurysmal dilatation or aortic dissection. IMPRESSION: No definite pulmonary embolus is noted. Bibasilar atelectasis is noted. No evidence of aortic dissection is noted. Small mediastinal and hilar lymph nodes are noted bilaterally.
[2017-08-15] MEDS: NS 0.9% 1000 ML* 1,000 ML IV SCH (01:09)
[2017-08-15] MEDS ORDERED: Omeprazole CAP* 20 MG PO SCH (06:00)
[2017-08-15] MEDS: Heparin VIAL(*) 5000 UNITS/ML VIAL (FIVE THOUSAND) SUBCUT SCH (06:05)
[2017-08-15] MEDS: Levothyroxine TAB* 100 MCG TAB PO SCH (08:23)
[2017-08-15] MEDS: Docusate CAP* 100 MG PO SCH (08:23)
[2017-08-15] MEDS: Aspirin 81 mg CHEW TAB* 81 MG TAB.CHEW PO SCH (08:23)
[2017-08-15 12:07] VITALS: BP 140/73
--- NOTE | 2017-08-16 00:35 | DS ---
CC: Dr. Walton * DISCHARGE SUMMARY: DATE OF ADMISSION: 08/14/17 DATE OF DISCHARGE: 08/15/17 PRIMARY CARE PROVIDER: Dr. Walton. PRIMARY DIAGNOSIS: Syncope. SECONDARY DIAGNOSES: Include: 1. Hypothyroidism. 2. Hyperlipidemia. 3. Hilar lymphadenopathy. MEDICATIONS ON DISCHARGE: Unchanged from admission, include: 1. Levothyroxine 100 mcg daily. 2. Lovastatin 20 mg daily. 3. Aspirin 81 mg daily. PERTINENT LABORATORY DATA: Includes troponin I 0.00 on 3 consecutive checks. BNP 26. TSH 0.8. Urine positive for leuk esterase. White blood cells absent for bacteria. Urine culture no growth and blood culture no growth. PERTINENT IMAGING PERFORMED DURING HOSPITAL STAY: Transthoracic echocardiogram. Impression: Increased basal septal hypertrophy noted without evidence of increased gradient across the left ventricular outflow tract. Estimated EF is 60% to 65% with E to A reversal and mitral valve suggestive of diastolic dysfunction. Aortic valves are mildly thickened. There is trace MR. There is trace TR and there is trace pulmonary regurgitation. CTA of the chest and thorax. No definite pulmonary embolism is noted. Bibasilar atelectasis is noted. No evidence of aortic dissection is noted. There are small 3 to 5 mm peritracheal lymph nodes. Prevascular space lymph nodes are noted measuring up to 8 mm. Left hilar lymph nodes measuring up to 10 mm and right hilar lymph nodes measuring 9 mm are noted. The heart demonstrates no pericardial effusion. The lungs have emphysematous changes. HISTORY OF PRESENT ILLNESS AND HOSPITAL COURSE: This is a 62-year-old female with past medical history as outlined in the history of present illness on the day of admission, who had felt unwell 2 days prior to presentation with some difficulty catching her breath on the day prior to presentation, had 2 episodes of sudden loss of consciousness in close succession to each other. 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 However, she noted no preceding symptoms, did not proceed to the hospital that day; but the following day, still did not feel well, noted a sensation of teeth chattering and generalized weakness, presented to the hospital for evaluation. She was admitted to the hospital and had the above testing including negative troponins and a largely normal EKG did not explain her loss of consciousness. Her D-dimer was elevated, underwent CTA of her chest and thorax, not notable for pulmonary embolism, but did identify several intrathoracic lymph nodes. Additionally, the patient did have odd sensation of numbness in her right leg the day prior to her syncopal episode that lasted only for seconds. She notes previous episode of bilateral leg numbness that lasted for weeks, which was ultimately thought to be secondary to stress and/or conversion disorder. On presentation to the hospital, she also was noted to have macular rash on her left leg extending from her upper thigh down to her knee, ovoid lesions in a regularly-spaced distance between them. A similar rash was located on her upper back, both of which had resolved prior to her discharge the following day. She had no neurological deficits, felt well during the course of the hospital stay. __Investigations found no evidence of bacterial infection nor cardiac reasons for her loss of consciousness. She was monitored on telemetry without abnormal rhythms. Unclear etiology at this time for the loss of consciousness, may have been vasovagal; however, seems less likely. In the setting of her stress and previous episode of neurological sequelae, there is potential that her stress had contributed to her loss of consciousness; however, strange constellation of symptoms, I am not sure they are interconnected. I do think she warrants further workup and evaluation for her intrathoracic lymph nodes identified on CTA of her chest if thought so by Pulmonology. For this reason, I called and arranged Pulmonology followup to see Dr. Sánchez after discharge from the hospital. The patient is in agreement with this plan. There were no complications during the course of this hospital stay. At followup, please; 1. Evaluate for any recurrent episodes of syncope for which the patient may not have to return to the hospital. 2. Please ensure that the patient follows up with Dr. Sánchez for above evaluation and potential testing. 3. No other specific labs or vitals that need followup. Reasons to return to the hospital including, but not limited to recurrent or worsening symptoms including chest pain, shortness of breath, nausea, vomiting, lightheadedness, fever, chills, night sweats, lightheadedness, near loss of consciousness, or loss of consciousness discussed with the patient. She acknowledged understanding. TIME SPENT: Greater than 60 minutes were spent on discharge of this patient. [id number]/[facility] #: [id number] DEEPA
== END 2017-08-15 14:19 | disposition home or self-care (01) | DRG 204 ==
LOC: ED 21:01 → INTOOBSV 08-14 03:03 → MEDTELE 08-14 03:03
PROVIDERS: ADMIT Hospitalist; ATTEND Internal Medicine
DX: R55 Syncope and collapse (principal); J98.11 Atelectasis; E86.0 Dehydration; I10 Essential (primary) hypertension; M85.80 Other specified disorders of bone density and structure, unspecified site; E78.5 Hyperlipidemia, unspecified; E03.9 Hypothyroidism, unspecified; R59.0 Localized enlarged lymph nodes; I08.1 Rheumatic disorders of both mitral and tricuspid valves; E66.3 Overweight; F44.6 Conversion disorder with sensory symptom or deficit; I45.10 Unspecified right bundle-branch block; K08.89 Other specified disorders of teeth and supporting structures; R71.8 Other abnormality of red blood cells; R21 Rash and other nonspecific skin eruption; Z80.7 Family history of other malignant neoplasms of lymphoid, hematopoietic and related tissues; Z88.1 Allergy status to other antibiotic agents; Z88.2 Allergy status to sulfonamides; Z79.82 Long term (current) use of aspirin; Z85.830 Personal history of malignant neoplasm of bone; Z82.49 Family history of ischemic heart disease and other diseases of the circulatory system; Z68.28 Body mass index [BMI] 28.0-28.9, adult; Z83.49 Family history of other endocrine, nutritional and metabolic diseases
CPT/HCPCS: 36415; 71045; 71275; 80053; 81003; 81015; 82565; 83605; 83735; 83880; 84443; 84484; 84520; 85025; 85379; 85610; 85730; 87040; 87086; 93005; 93306; 99212; 99283; A9270-GY; G0378; G0463; J1200; J1644; J3490; Q9967

== ENCOUNTER 2017-10-08 11:46 | Day surgery (SDC) | payer BC ==
[~2017-10-08 11:46] MED LIST: Buffered Lidocaine 0.9% SYRIN* 5 ML/SYR SYRINGE INTRADERM ONE
[2017-10-08] MEDS ORDERED: Midazolam* 1 MG/ML 5 ML VIAL (5 MG) ONE (13:17)
[2017-10-08] MEDS ORDERED: Succinylcholine* 20 MG/ML 10 ML VIAL ONE (13:25)
[2017-10-08] MEDS ORDERED: Propofol* 10 MG/ML 20 ML BTL IV PUSH ONE ×2 (13:25→14:07)
[2017-10-08] MEDS ORDERED: fentaNYL* 50 MCG/ML 2 ML VIAL (100 MCG VIAL) ONE (13:29)
[2017-10-08] MEDS ORDERED: fentaNYL* 50 MCG/ML 2 ML VIAL (100 MCG VIAL) IV PRN (14:19)
[2017-10-08] MEDS ORDERED: Ondansetron INJ* 2 MG/ML VIAL IV PRN (14:19)
[2017-10-08] MEDS ORDERED: Naloxone* 0.4 MG/ML 1 ML VIAL IV PRN (14:19)
[2017-10-08 15:45] VITALS: BP 138/95
--- NOTE | 2017-10-08 22:42 | PRO ---
BRONCHOSCOPY REPORT: DATE OF PROCEDURE: 10/08/17 PROCEDURE PERFORMED: Bronchoscopy with endobronchial ultrasound-guided fine needle aspiration from station 7, L10, and R10 lymph nodes. PREPROCEDURAL DIAGNOSIS: Mediastinal and hilar adenopathy. ANESTHESIA: General anesthesia. ANESTHESIOLOGIST: Dr. Steven. DESCRIPTION OF PROCEDURE: Informed consent was obtained from the patient prior to the procedure after all the risks and benefits were thoroughly explained. The patient recently was incidentally found to have mediastinal and hilar adenopathy. Appropriate time-out was agreed on by attending staff. The patient was intubated with size 8.5 endotracheal tube. Flexible Olympus bronchoscope was inserted through the endobronchial tube for airway inspection. Evidence of thin secretions bilaterally noted. There was evidence of mild tracheobronchomalacia. Secretions were suctioned out. Bronchoscope was then withdrawn and EBUS bronchoscope was inserted. Station 7 was mildly enlarged and was accessed with 3 passes. Rapid onsite evaluation revealed lymphatic tissue, no malignant cells are noted, no granulomas were noted. Station L10 was accessed with 3 passes. Rapid onsite evaluation revealed lymphatic tissue, no malignant cells were noted, no granulomas were ascertained. Station R10 accessed was accessed with 3 passes. Rapid onsite evaluation revealed possible epithelial cells in 1 cluster. Rest of the sample looked fine. Other passes showed lymphatic tissue with no granulomas or abnormal cells. Specimen was also placed in CytoLyt for flow cytometry. Rest of the specimen was placed in formalin for cell block. The patient tolerated the procedure well. The patient was extubated and seen in recovery in optimal condition. Minimal bleeding occurred during the biopsies. [id number]/[facility] #: [id number] MTDD
== END 2017-10-08 15:46 | disposition home or self-care (01) ==
LOC: OR 11:46
PROVIDERS: ATTEND Internal Medicine
DX: R59.0 Localized enlarged lymph nodes (principal); E03.9 Hypothyroidism, unspecified; R06.83 Snoring; E66.09 Other obesity due to excess calories; J43.9 Emphysema, unspecified; J98.11 Atelectasis
CPT/HCPCS: 88172; 88173; 88184; 88185; 88187; 88188; 88189; 88305; J0330; J2250; J2704; J3010

== ENCOUNTER 2018-05-29 07:01 | Emergency (ER) | payer BC ==
[2018-05-29 07:15] VITALS: BP 134/73
--- NOTE | 2018-05-29 08:29 | UC ---
Skin Complaint HPI - HPI Summary HPI Summary: FOUND A TICK ATTACHED TO LEFT SIDE OF NECK THIS MORNING. THINKS IT ATTACHED YESTERDAY AFTERNOON. TRIED TO REMOVE IT WITH TWEEZERS BUT WAS UNABLE TO REMOVE ALL THE MOUTH PARTS. AREA IS SLIGHTLY RED AND MILDLY TENDER. - History of Current Complaint Chief Complaint: UCSkin Time Seen by Provider: 05/29/18 07:19 Stated Complaint: TICK Hx Obtained From: Patient Hx Last Menstrual Period: post Timing: Constant Onset Severity: Mild Current Severity: Mild Pain Intensity: 1 Pain Scale Used: 0-10 Numeric Location: Discrete - RIGHT SIDE OF NECK Character: Redness Aggravating Factor(s): Touch Alleviating Factor(s): Nothing Associated Signs & Symptoms: Positive: Tenderness - Allergy/Home Medications Allergies/Adverse Reactions: Allergies Allergy/AdvReac Type Severity Reaction Status Date / Time sulfamethoxazole Allergy Intermediate lip rash Verified 05/29/18 07:15 [From Bactrim] trimethoprim [From Bactrim] Allergy Intermediate lip rash Verified 05/29/18 07: 15 PMH/Surg Hx/FS Hx/Imm Hx Endocrine History: Hypothyroidism, Dyslipidemia - Surgical History Surgical History: Yes Surgery Procedure, Year, and Place: 1996 iain detached retinas - Family History Known Family History: Positive: Other - bone cancer - Social History Alcohol Use: None Substance Use Type: None Smoking Status (MU): Never Smoked Tobacco Have You Smoked in the Last Year: No - Immunization History Most Recent Influenza Vaccination: 03/2017 Most Recent Pneumonia Vaccination: never Review of Systems All Other Systems Reviewed And Are Negative: Yes Constitutional: Positive: Negative Skin: Positive: Other - TICK ATTACHMENT SITE IRRITATION Respiratory: Positive: Negative Cardiovascular: Positive: Negative Gastrointestinal: Positive: Negative Physical Exam Triage Information Reviewed: Yes Appearance: Well-Appearing, No Pain Distress, Well-Nourished Vital Signs: Initial Vital Signs Temp 97.8 F 05/29/18 07:11 Pulse 70 05/29/18 07:11 Resp 18 05/29/18 07:11 BP 134/73 05/29/18 07:11 Pulse Ox 98 05/29/18 07:11 Vital Signs Reviewed: Yes Eyes: Positive: Conjunctiva Clear ENT: Positive: Hearing grossly normal Neck: Positive: Supple, Nontender, No Lymphadenopathy Respiratory: Positive: No respiratory distress, No accessory muscle use Cardiovascular: Positive: Pulses Normal Musculoskeletal: Positive: No Edema Neurological: Positive: Alert Psychological: Positive: Age Appropriate Behavior Skin: Positive: Other - 1.5 CM AREA OF ERYTHEMA SURROUNDING TICK ATTACHMENT SITE LEFT SIDE OF NECK. MILD EXCORIATION WITH RETAINED TICK PARTS. Course/Dx - Course Course Of Treatment: COUNSELED PT EXTENSIVELY ON LOW RISK OF JAMAAL LYME DISEASE FROM THIS TICK. TICK WAS NOT ENGORGED SO UNLIKELY TO HAVE BEEN ATTACHED FOR REQUISITE AMOUNT OF TIME TO TRANSMIT DISEASE. NO INCREASED RISK OF DEVELOPING LYME WITH RETAINED TICK PARTS. NO INDICATION TO REMOVE THEM. 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 KEEP THE AREA CLEAN AND BE VIGILANT OF SX OVER THE NEXT 4-6 WEEKS. PT DOES NOT MEET CRITERIA FOR PROPHYLAXIS WITH DOXY. ALL QUESTIONS ANSWERED AND PT COMFORTABLE WITH CAREFUL OBSERVATION AT HOME. - Diagnoses Provider Diagnosis: Tick bite of neck Discharge - Sign-Out/Discharge Documenting (check all that apply): Patient Departure All imaging exams completed and their final reports reviewed: No Studies - Discharge Plan Condition: Stable Disposition: HOME Patient Education Materials: Tick Bite (ED) Referrals: Ilda Walton MD [Primary Care Provider] - If Needed Additional Instructions: The Infectious Disease Society of [place] (IDSA) does not generally recommend antimicrobial prophylaxis for prevention of Lyme disease after a recognized tick bite. However, in areas that are highly endemic for Lyme disease, a single dose of doxycycline may be offered to adult patients (200 mg) who are not and to children older than 8 years of age (4 mg/kg up to a maximum dose of 200 mg) when all of the following circumstances exist: CRITERIA FOR RECEIVING PROPHYLACTIC TREATMENT FOR LYME DISEASE 1) TICK ATTACHED FOR AT LEAST 36 HRS 2) TICK IS AN ADULT OR [place] DEER TICK 3) YOU LIVE IN AN AREA WHERE LYME DISEASE IS PREVALENT (i.e., [place], [place], [place], , [place] , [place], [place], [place], [place], [place], [place], [place], [place], [place]) 4) YOU HAVE NO CONTRAINDICATION TO THE MEDICATION (DOXYCYCLINE) 5) PROPHYLAXIS IS BEGUN WITHIN 72 HRS OF TICK REMOVAL SINCE YOU DO NOT MEET ALL THESE CRITERIA THERE IS NO NEED TO GIVE YOU PROPHYLACTIC ANTIBIOTICS. YOUR CHANCES OF DEVELOPING LYME DISEASE FROM THIS TICK ARE EXTREMELY SMALL. HOWEVER, 1 TICK MEANS THERE MAY HAVE BEEN OTHER TICKS OF WHICH YOU WEREN'T AWARE. SO BE VIGILANT OF YOUR SYMPTOMS AND DON'T HESITATE TO GET SEEN AGAIN IF YOU DEVELOP UNEXPLAINED FEVER, HEADACHE, JOINT PAIN, BODY ACHES, RASH OR ANY OTHER CONCERNING SYMPTOMS. Antibiotic treatment following a tick bite is not recommended as a means to prevent anaplasmosis, babesiosis, ehrlichiosis, or [place] spotted fever. There is no evidence this practice is effective, and it may simply delay onset of disease. Instead, persons who experience a tick bite should be alert for symptoms suggestive of tickborne illness and consult a physician if fever, rash, headache or other symptoms of concern develop. APPLY ANTIBIOTIC OINTMENT (TRY TO AVOID NEOMYCIN CONTAINING PRODUCTS) TO THE ATTACHMENT SITE FOR A FEW DAYS TO HELP PREVENT DEVELOPING A SKIN INFECTION THE AREA IS SLIGHTLY EXCORIATED. GET A TICK TWISTER TO HELP REMOVE ANY FUTURE TICKS. - Billing Disposition and Condition Condition: STABLE Disposition: Home
== END 2018-05-29 07:41 | disposition home or self-care (01) ==
LOC: UCEAST 07:01
DX: S10.86XA Insect bite of other specified part of neck, initial encounter (principal); W57.XXXA Bitten or stung by nonvenomous insect and other nonvenomous arthropods, initial encounter; Y92.9 Unspecified place or not applicable; E03.9 Hypothyroidism, unspecified; E78.5 Hyperlipidemia, unspecified; Z88.2 Allergy status to sulfonamides
CPT/HCPCS: 99211; G0463

== ENCOUNTER 2018-07-17 07:41 | Emergency (ER) | payer BC ==
[2018-07-17 07:56] VITALS: BP 130/70
--- NOTE | 2018-07-17 08:31 | UC ---
Skin Complaint HPI - HPI Summary HPI Summary: Patient is a 63-year-old female who presents to the urgent care with chief complaint of having an tick remnant in the left side of the neck. She reports that she noticed that the tick was there yesterday and the tried to remove it. She reports that he was not engorged and the remove most of the tick. She has no other complaints. She denies any fever, she denies any chills , denies any rash, denies any pain. She has no other complaints. - History of Current Complaint Chief Complaint: UCSkin Time Seen by Provider: 07/17/18 08:08 Stated Complaint: TICK BITE Hx Obtained From: Patient Hx Last Menstrual Period: post Onset Severity: Mild Pain Intensity: 0 - Allergy/Home Medications Allergies/Adverse Reactions: Allergies Allergy/AdvReac Type Severity Reaction Status Date / Time sulfamethoxazole Allergy Intermediate lip rash Verified 07/17/18 07:53 [From Bactrim] trimethoprim [From Bactrim] Allergy Intermediate lip rash Verified 07/17/18 07: 53 PMH/Surg Hx/FS Hx/Imm Hx Previously Healthy: Yes Endocrine History: Thyroid Disease - Surgical History Surgical History: Yes Surgery Procedure, Year, and Place: 1996 [facility] - Family History Known Family History: Positive: Other - bone cancer - Social History Alcohol Use: None Substance Use Type: None Smoking Status (MU): Never Smoked Tobacco Have You Smoked in the Last Year: No - Immunization History Most Recent Influenza Vaccination: 03/2017 Most Recent Pneumonia Vaccination: never Review of Systems All Other Systems Reviewed And Are Negative: Yes Constitutional: Positive: Negative Skin: Positive: Negative Eyes: Positive: Negative ENT: Positive: Negative Respiratory: Positive: Negative Cardiovascular: Positive: Negative Gastrointestinal: Positive: Negative Genitourinary: Positive: Negative Motor: Positive: Negative Neurovascular: Positive: Negative Musculoskeletal: Positive: Negative Neurological: Positive: Negative Psychological: Positive: Negative Is Patient Immunocompromised?: No Physical Exam - Summary Physical Exam Summary: VITAL SIGNS: Reviewed. GENERAL: Patient is a well developed and nourished female who is lying comfortable in the stretcher. Patient is not in any acute respiratory distress. HEAD AND FACE: No signs of trauma. No ecchymosis, hematomas or skull depressions. No sinus tenderness. EYES: PERRLA, EOMI x 2, No injected conjunctiva, no nystagmus. EARS: Hearing grossly intact. Ear canals and tympanic membranes are within normal limits. MOUTH: Oropharynx within normal limits. NECK: Supple, trachea is midline, no adenopathy, no JVD, no carotid bruit, no c- spine tenderness, neck with full ROM. CHEST: Symmetric, no tenderness at palpation LUNGS: Clear to auscultation bilaterally. No wheezing or crackles. CVS: Regular rate and rhythm, S1 and S2 present, no murmurs or gallops appreciated. ABDOMEN: Soft, non-tender. No signs of distention. No rebound no guarding, and no masses palpated. Bowel sounds are normal. EXTREMITIES: FROM in all major joints, no edema, no cyanosis or clubbing. NEURO: Alert and oriented x 3. No acute neurological deficits. Speech is normal and follows commands. SKIN: Positive tick bite in the left side of the neck. No erythema Triage Information Reviewed: Yes Appearance: Well-Appearing, No Pain Distress, Well-Nourished Vital Signs: Initial Vital Signs Temp 97.5 F 07/17/18 07:50 Pulse 62 07/17/18 07:50 Resp 18 07/17/18 07:50 BP 130/70 07/17/18 07:50 Pulse Ox 100 07/17/18 07:50 Course/Dx - Course Course Of Treatment: In the urgent care and remove most of the tick remnants. The tick he has been there for less than 72 hours therefore she did not need any prophylactic treatment. The patient was recommended to get bacitracin and applied twice a day. She will follow up with the primary care physician next 2-3 days. - Diagnoses Provider Diagnosis: Tick bite of neck Discharge - Sign-Out/Discharge Documenting (check all that apply): Patient Departure All imaging exams completed and their final reports reviewed: No Studies - Discharge Plan Condition: Stable Disposition: HOME Patient Education Materials: Tick Bite (ED) Referrals: Ilda Walton MD [Primary Care Provider] - Additional Instructions: F/U with PCP in the next 2 days - Billing Disposition and Condition Condition: STABLE Disposition: Home
== END 2018-07-17 08:27 | disposition home or self-care (01) ==
LOC: UCEAST 07:41
DX: T63.481A Toxic effect of venom of other arthropod, accidental (unintentional), initial encounter (principal); Y92.9 Unspecified place or not applicable; Z88.2 Allergy status to sulfonamides; E07.9 Disorder of thyroid, unspecified
CPT/HCPCS: 99211; G0463